=== PATIENT | female | born 1980 | race Two or more races ===

== ENCOUNTER 2018-09-29 01:04 | Emergency (ER) | payer SELFPAY ==
[2018-09-29 01:31] VITALS: BMI 17.6
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
[2018-09-29 05:36] LABS: BASO % 0.2 % (0.0-2.0); HEMOGLOBIN 14.1 g/dL (12.0-16.0); LYMPH # 1.4 K/uL (1.0-4.3); LYMPH % 10.8 % (20.0-40.0); MEAN CELL VOLUME 94.5 fl (81.0-99.0); MEAN CORPUSCULAR HEMOGLOBIN 32.1 pg (27.0-31.0); MEAN PLATELET VOLUME 9.5 fl (7.2-11.7); MONO # 1.1 K/uL (0.0-0.8); MONO % 8.4 % (0.0-10.0); NEUT # 10.1 K/uL (1.8-7.0); NEUT % 80.6 % (50.0-75.0); NRBC % 0.1 % (0.0-0.0); RBC 4.39 Mil/uL (3.80-5.20); RED CELL DISTRIBUTION WIDTH 12.4 % (11.5-14.5); WHITE BLOOD COUNT 12.5 K/uL (4.8-10.8)
[2018-09-29 05:38] LABS: ALB/GLOB RATIO 1.3 (1.0-2.1); ALBUMIN 5.1 g/dL (3.5-5.0); ALT/SGPT 36 U/L (9-52); AST/SGOT 77 U/L (14-36); BLOOD UREA NITROGEN 7 mg/dl (7-17); CALCIUM 9.8 mg/dL (8.4-10.2); GFR NON-AFRICAN AMERICAN > 60
[2018-09-29 07:28] LABS: SQUAMOUS EPITHIAL 26 /hpf (0-5); URINE BACTERIA MANY (<OCC); URINE BILIRUBIN NEGATIVE (NEGATIVE); URINE BLOOD SMALL (NEGATIVE); URINE CLARITY TURBID (Clear); URINE COLOR YELLOW (YELLOW); URINE GLUCOSE (UA) 50 mg/dL (NEGATIVE); URINE HYALINE CAST >20 /hpf (0-2); URINE LEUKOCYTE ESTERASE TRACE Leu/uL (Negative); URINE PROTEIN 100 mg/dL (NEGATIVE); URINE UROBILINOGEN 0.2-1.0 mg/dL (0.2-1.0)
--- NOTE | 2018-09-29 07:32 | ED PDOC ---
- Laboratory Results Result Diagrams: 09/29/18 05:21 09/29/18 05:21 Lab Results: Total Bilirubin 1.4 mg/dl (0.2-1.3) H 09/29/18 05:21 AST 77 U/L (14-36) H 09/29/18 05:21 ALT 36 U/L (9-52) 09/29/18 05:21 Alkaline Phosphatase 55 U/L (38-126) 09/29/18 05:21 Total Protein 9.0 G/DL (6.3-8.2) H 09/29/18 05:21 Albumin 5.1 g/dL (3.5-5.0) H 09/29/18 05:21 Globulin 3.9 gm/dL (2.2-3.9) 09/29/18 05:21 Albumin/Globulin Ratio 1.3 (1.0-2.1) 09/29/18 05:21 - ECG O2 Sat by Pulse Oximetry: 97 Medical Decision Making Medical Decision Making: Time: 0700 --Patient endorsed to provider by Dr. Mendiola pending [facility] screening for auditory hallucinations. CXR reveals no active pulmonary disease. Mild Scoliosis. Poattasium 3.2, will give 20 Meq PO Scribe Attestation: Documented by Ling Augustin, acting as a scribe for Varun Palacios MD. Provider Scribe Attestation: All medical record entries made by the Scribe were at my direction and pe rsonally dictated by me. I have reviewed the chart and agree that the record accurately reflects my personal performance of the history, physical exam, medical decision making, and the department course for this patient. I have also personally directed, reviewed, and agree with the discharge instructions and disposition. Disposition - Clinical Impression Clinical Impression: Paranoia - POA Present On Arrival: None - Disposition Disposition: Transfer of Care Disposition Time: 19:00 Condition: [facility]IR Forms: [email or web address] (Tanzanian) Patient Signed Over To: Alicia Mendiola (Pending transfer to [facility])
[2018-09-29 07:41] LABS: BARBITURATES, UR NEGATIVE (NEGATIVE); BENZODIAZEPINES, UR NEGATIVE (NEGATIVE); OPIATES, UR NEGATIVE (NEGATIVE); PHENCYCLIDINE, UR NEGATIVE (NEGATIVE)
--- NOTE | 2018-09-29 11:08 | RAD ---
Date of service: 09/29/2018 HISTORY: psychiatric screening COMPARISON: No prior. FINDINGS: LUNGS: No active pulmonary disease. PLEURA: No significant pleural effusion identified, no pneumothorax apparent. CARDIOVASCULAR: No atherosclerotic calcification present Normal. OSSEOUS STRUCTURES: Moderate levoscoliosis. VISUALIZED UPPER ABDOMEN: Normal. OTHER FINDINGS: None. IMPRESSION: No active pulmonary disease.
--- NOTE | 2018-09-29 14:29 | CARD ---
APPROVED REPORT Date of service: 09/29/2018 EKG Measurement Heart [id number] <Conclusion> Sinus rhythm with premature atrial complexes Otherwise normal ECG
[2018-09-29] MEDS ORDERED: Potassium Chloride 20 mEq ER Tab PO ONE ×2 (18:35)
--- NOTE | 2018-09-29 20:46 | ED PDOC ---
- Laboratory Results Result Diagrams: 09/29/18 05:21 09/29/18 05:21 Lab Results: Total Bilirubin 1.4 mg/dl (0.2-1.3) H 09/29/18 05:21 AST 77 U/L (14-36) H 09/29/18 05:21 ALT 36 U/L (9-52) 09/29/18 05:21 Alkaline Phosphatase 55 U/L (38-126) 09/29/18 05:21 Total Protein 9.0 G/DL (6.3-8.2) H 09/29/18 05:21 Albumin 5.1 g/dL (3.5-5.0) H 09/29/18 05:21 Globulin 3.9 gm/dL (2.2-3.9) 09/29/18 05:21 Albumin/Globulin Ratio 1.3 (1.0-2.1) 09/29/18 05:21 Urine Color Yellow (YELLOW) 09/29/18 06:30 Urine Clarity Turbid (Clear) 09/29/18 06:30 Urine pH 6.0 (5.0-8.0) 09/29/18 06:30 Ur Specific [place] 1.019 (1.003-1.030) 09/29/18 06:30 Urine Protein 100 mg/dL (NEGATIVE) 09/29/18 06:30 Urine Glucose (UA) 50 mg/dL (NEGATIVE) 09/29/18 06:30 Urine Ketones 80 mg/dL (NEGATIVE) 09/29/18 06:30 Urine Blood Small (NEGATIVE) 09/29/18 06:30 Urine Nitrate Negative (NEGATIVE) 09/29/18 06:30 Urine Bilirubin Negative (NEGATIVE) 09/29/18 06:30 Urine Urobilinogen 0.2-1.0 mg/dL (0.2-1.0) 09/29/18 06:30 Ur Leukocyte Esterase Trace Shahram/uL (Negative) 09/29/18 06:30 Urine RBC (Auto) 12 /hpf (0-3) H 09/29/18 06:30 Urine Microscopic WBC 67 /hpf (0-5) H 09/29/18 06:30 Ur Squamous Epith Cells 26 /hpf (0-5) H 09/29/18 06:30 Urine Bacteria Many (<OCC) H 09/29/18 06:30 Hyaline Casts >20 /hpf (0-2) H 09/29/18 06:30 - ECG O2 Sat by Pulse Oximetry: 97 Medical Decision Making Medical Decision Makin:00 Patient has been medically cleared and has been here for nearly 18 hours at the time of sign out. Patient is accepted by [facility] for paranoid delusional thoughts and is currently on 1:1 involuntary hold. Patient is calm and cooperative at this time and awaiting a [facility] bed. Time: 0700 Patient endorsed from provider to Veronique Boothe MD. Patient worked up for paranoia and delusions. Patient has been medically cleared. Patient is calm and cooperative with no complaints. Pending [facility] bed availability for involuntary psychiatric admission. Scribe Attestation: Documented by Freddy Lisa acting as a scribe for Alicia Mendiola MD. Provider Scribe Attestation: All medical record entries made by the Scribe were at my direction and personally dictated by me. I have reviewed the chart and agree that the record accurately reflects my personal performance of the history, physical exam, medical decision making, and the department course for this patient. I have also personally directed, reviewed, and agree with the discharge instructions and disposition. Disposition - Clinical Impression Clinical Impression: Paranoia - POA Present On Arrival: None - Disposition Disposition: Transfer of Care Disposition Time: 07:00 Condition: [facility]IR Forms: [employer] (Ethiopian)
[2018-09-30 05:17] VITALS: RESP 18
--- NOTE | 2018-09-30 07:35 | ED PDOC ---
- Laboratory Results Result Diagrams: 09/29/18 05:21 09/29/18 05:21 Lab Results: Total Bilirubin 1.4 mg/dl (0.2-1.3) H 09/29/18 05:21 AST 77 U/L (14-36) H 09/29/18 05:21 ALT 36 U/L (9-52) 09/29/18 05:21 Alkaline Phosphatase 55 U/L (38-126) 09/29/18 05:21 Total Protein 9.0 G/DL (6.3-8.2) H 09/29/18 05:21 Albumin 5.1 g/dL (3.5-5.0) H 09/29/18 05:21 Globulin 3.9 gm/dL (2.2-3.9) 09/29/18 05:21 Albumin/Globulin Ratio 1.3 (1.0-2.1) 09/29/18 05:21 Urine Color Yellow (YELLOW) 09/29/18 06:30 Urine Clarity Turbid (Clear) 09/29/18 06:30 Urine pH 6.0 (5.0-8.0) 09/29/18 06:30 Ur Specific [place] 1.019 (1.003-1.030) 09/29/18 06:30 Urine Protein 100 mg/dL (NEGATIVE) 09/29/18 06:30 Urine Glucose (UA) 50 mg/dL (NEGATIVE) 09/29/18 06:30 Urine Ketones 80 mg/dL (NEGATIVE) 09/29/18 06:30 Urine Blood Small (NEGATIVE) 09/29/18 06:30 Urine Nitrate Negative (NEGATIVE) 09/29/18 06:30 Urine Bilirubin Negative (NEGATIVE) 09/29/18 06:30 Urine Urobilinogen 0.2-1.0 mg/dL (0.2-1.0) 09/29/18 06:30 Ur Leukocyte Esterase Trace Shahram/uL (Negative) 09/29/18 06:30 Urine RBC (Auto) 12 /hpf (0-3) H 09/29/18 06:30 Urine Microscopic WBC 67 /hpf (0-5) H 09/29/18 06:30 Ur Squamous Epith Cells 26 /hpf (0-5) H 09/29/18 06:30 Urine Bacteria Many (<OCC) H 09/29/18 06:30 Hyaline Casts >20 /hpf (0-2) H 09/29/18 06:30 - ECG O2 Sat by Pulse Oximetry: 97 Medical Decision Making Medical Decision Making: Time: 0700 --Patient is endorsed to provider pending [facility] bed availability. Time: 1620 --Patient is medically stable for [facility] transfer with good vitals. Transfer center made aware and accepts patient for admission. Counseling was provided and all questions were answered regarding diagnosis. There is agreement to discharge plan. Return precautions discussed. Clinical Impression: paranoia Scribe Attestation: Documented by Ling Augustin, acting as a scribe for Veronique Boothe MD. Provider Scribe Attestation: All medical record entries made by the Scribe were at my direction and personally dictated by me. I have reviewed the chart and agree that the record accurately reflects my personal performance of the history, physical exam, medical decision making, and the department course for this patient. I have also personally directed, reviewed, and agree with the discharge instructions and disposition. Disposition - Clinical Impression Clinical Impression: Paranoia - POA Present On Arrival: None - Disposition Disposition: Other Institution Disposition Time: 16:20 Condition: [facility]IR Forms: [employer] (Kosovan)
[2018-09-30 16:34] VITALS: BP 134/85; PULSE 93; TEMP 98.1
[2018-09-30] MEDS ORDERED: Potassium Chloride 20 mEq ER Tab PO ONE (17:10)
[2018-10-02 15:25] VITALS: O2SAT 97
== END 2018-09-30 17:40 | disposition short-term general hospital (02) ==
LOC: H.ER 01:04
DX: F22 Delusional disorders (principal)
CPT/HCPCS: 71045; 80053; 81003; 81025; 85025; 93005; 99285; G0480